=== PATIENT | female | born 1950 | race Caucasian/White ===

== ENCOUNTER 2017-10-31 19:50 | Emergency (ER) | payer OTHER ==
[~2017-10-31] VITALS: Ht 160 cm; Wt 76.2 kg
[~2017-10-31 19:50] MED LIST: ACT300 PO; ATARAX50 M PO; BILBERRY PO; CLEAR EYES; FISH OIL PO; FLUOXETINE20 MG PO; GLIPIZIDE2.5 MG PO; IRON PO; MAGNESIUM; METFORMIN500 MG PO; NEXIUM20 M PO; PEGASYS180 MCG/0. SC; RIBASPHERE200 MG PO; SLOW PO; VICODIN1 TAB PO; XAN25 PO
[2017-10-31 20:24] VITALS: Ht 160 cm; Wt 76.2 kg
[2017-10-31 22:02] LABS: BASOPHIL % 0.1 % (0-2)
[2017-10-31 22:09] LABS: PLATELET COUNT 94 x10^3mcL (130-400); RED CELL DISTRIBUTION WIDTH 14.6 % (11.5-14.5)
[2017-10-31 22:32] LABS: CALCIUM 8.9 mg/dL (8.5-10.1); CARBON DIOXIDE 24.8 mmol/L (21-32); CHLORIDE SERUM 100 mmol/L (98-107); CREATININE SERUM 0.8 mg/dL (0.6-1.0); GFR1 > 60 mL/min; GLUCOSE SERUM 154 mg/dL (74-106); POTASSIUM SERUM 3.8 mmol/L (3.5-5.1); SODIUM SERUM 137 mmol/L (136-145); T3 TOTAL 1.07 ng/mL
[2017-10-31 22:34] LABS: FREE T4 1.24 ng/dL (0.76-1.46); FREE THYROXINE INDEX 3.4 ug/dL (1.4-4.5); T4(THYROXINE) 10.9 ug/dL (4.7-13.3)
[2017-10-31 22:36] LABS: CK-MB 0.5 ng/mL (0-3.6)
[2017-10-31 22:43] LABS: ALKALINE PHOSPHATASE 128 U/L (46-116); ALT/SGPT 107 U/L (14-59); AST/SGOT 99 U/L (15-37); BILIRUBIN TOTAL 0.7 mg/dL (0.20-1.00); C REACTIVE PROTEIN 2.8 mg/dL (<=0.9)
[2017-10-31 22:44] LABS: ALBUMIN 3.1 g/dL (3.4-5.0); TOTAL PROTEIN, SERUM 9.3 g/dL (6.4-8.2)
[2017-10-31 23:03] VITALS: BP 126/65
[2017-11-01 00:03] LABS: ERYTHROCYTE SED RATE 98 mm/hr (0-30)
== END 2017-10-31 23:03 | disposition home or self-care (01) ==
LOC: ED 19:50
PROVIDERS: Specialist
DX: S80.812D Abrasion, left lower leg, subsequent encounter (principal); L03.116 Cellulitis of left lower limb; W01.0XXD Fall on same level from slipping, tripping and stumbling without subsequent striking against object, subsequent encounter
CPT/HCPCS: 83880; 84439; J0696; J1885; J3490; Q0092

== ENCOUNTER 2018-07-06 23:44 | Observation (INO) | payer OTHER ==
[~2018-07-06] VITALS: Ht 162.6 cm; Wt 78.0 kg
[2018-07-06 23:54] VITALS: Ht 162.6 cm; Wt 78.0 kg
[2018-07-07 00:42] LABS: BASOPHIL % 0.7 % (0-2)
[2018-07-07 00:49] LABS: PLATELET COUNT 77 x10^3mcL (130-400); RED CELL DISTRIBUTION WIDTH 14.6 % (11.5-14.5)
[2018-07-07 01:06] LABS: CALCIUM 8.9 mg/dL (8.5-10.1); CHLORIDE SERUM 104 mmol/L (98-107); CREATININE SERUM 0.7 mg/dL (0.6-1.0); GFR1 > 60 mL/min; GLUCOSE SERUM 121 mg/dL (74-106); POTASSIUM SERUM 3.6 mmol/L (3.5-5.1); SODIUM SERUM 140 mmol/L (136-145)
[2018-07-07 01:09] LABS: microscopic required? YES; urine erythrocyte NEGATIVE (NEGATIVE)
[2018-07-07 01:11] LABS: ALKALINE PHOSPHATASE 126 U/L (46-116); ALT/SGPT 61 U/L (14-59); AST/SGOT 72 U/L (15-37); BILIRUBIN TOTAL 0.7 mg/dL (0.20-1.00)
[2018-07-07 01:15] LABS: ALBUMIN 3.1 g/dL (3.4-5.0); TOTAL PROTEIN, SERUM 8.5 g/dL (6.4-8.2)
[2018-07-07 04:05] VITALS: BP 111/58
[2018-07-07 05:35] VITALS: BP 113/61
[2018-07-07 08:24] VITALS: BP 118/60
[2018-07-07 13:27] VITALS: BP 114/51
[2018-07-07 17:42] VITALS: BP 108/57
[2018-07-07 20:45] VITALS: BP 100/55
[2018-07-08 06:19] VITALS: BP 109/55
[2018-07-08 07:30] VITALS: BP 100/60
[2018-07-08 08:42] VITALS: BP 100/60
== END 2018-07-08 10:39 | disposition home or self-care (01) | DRG 312 ==
LOC: ED 23:44 → DU 07-07 02:14
PROVIDERS: Emergency Medicine
DX: I95.1 Orthostatic hypotension (principal); N39.0 Urinary tract infection, site not specified; G89.29 Other chronic pain; M54.5 Low back pain; H54.8 Legal blindness, as defined in USA; F41.8 Other specified anxiety disorders; F32.9 Major depressive disorder, single episode, unspecified; K76.9 Liver disease, unspecified
CPT/HCPCS: 82962; 83880; G0378; J0696; J1650; J7030; J7050; J8597; Q0162

== ENCOUNTER 2019-04-10 16:44 | Emergency (ER) | payer OTHER ==
[~2019-04-10] VITALS: Ht 160 cm; Wt 77.1 kg
[2019-04-10 16:49] VITALS: Ht 160 cm; Wt 77.1 kg
[2019-04-10] MEDS ORDERED: METFORMIN HYD1000 M2 PO (17:10)
[2019-04-10] MEDS ORDERED: GLIPIZIDE ER5 M1 PO (17:11)
[2019-04-10] MEDS ORDERED: FLUOXETINE HYDR10 M1 PO (17:11)
[2019-04-10] MEDS ORDERED: NEU300 PO (17:11)
[2019-04-10] MEDS ORDERED: FLUOXETINE10 M3 PO (17:12)
[2019-04-10 23:46] VITALS: BP 129/69
== END 2019-04-10 23:40 | disposition home or self-care (01) ==
LOC: ED 16:44
DX: S16.1XXA Strain of muscle, fascia and tendon at neck level, initial encounter (principal); S29.012A Strain of muscle and tendon of back wall of thorax, initial encounter; S20.212A Contusion of left front wall of thorax, initial encounter; S20.211A Contusion of right front wall of thorax, initial encounter; E11.9 Type 2 diabetes mellitus without complications; G89.29 Other chronic pain; M54.5 Low back pain; F32.9 Major depressive disorder, single episode, unspecified; Z90.49 Acquired absence of other specified parts of digestive tract; Z88.6 Allergy status to analgesic agent; V49.9XXA Car occupant (driver) (passenger) injured in unspecified traffic accident, initial encounter; Y93.89 Activity, other specified; Y92.89 Other specified places as the place of occurrence of the external cause; Y99.8 Other external cause status